=== PATIENT | male | born 1985 | race African-American/Black ===

== ENCOUNTER 2021-11-28 21:54 | Emergency (ER) | payer OTHER ==
[~2021-11-28] VITALS: Ht 172.7 cm; Wt 90.9 kg
[2021-11-28 21:57] VITALS: BP 135/86
== END 2021-11-28 23:40 | disposition left against medical advice (07) ==
LOC: EMS 21:58
DX: R06.02 Shortness of breath (principal); Z53.21 Procedure and treatment not carried out due to patient leaving prior to being seen by health care provider

== ENCOUNTER 2023-01-05 11:51 | Emergency (ER) | payer OTHER ==
[~2023-01-05] VITALS: Ht 172.7 cm; Wt 95.5 kg
[2023-01-05] MEDS ORDERED: IBUP-1554 PO (14:44)
[2023-01-05] MEDS ORDERED: CORTSUSP AD (14:44)
[2023-01-05] MEDS ORDERED: ACET-2080 PO (14:44)
[2023-01-05] MEDS ORDERED: CEPH-558 PO (14:44)
[2023-01-05 15:20] VITALS: BP 122/81
== END 2023-01-05 15:50 | disposition home or self-care (01) ==
LOC: EMS 11:56
DX: H60.11 Cellulitis of right external ear (principal); H60.91 Unspecified otitis externa, right ear; J45.909 Unspecified asthma, uncomplicated; F17.210 Nicotine dependence, cigarettes, uncomplicated; F12.90 Cannabis use, unspecified, uncomplicated; F15.90 Other stimulant use, unspecified, uncomplicated; Z98.890 Other specified postprocedural states
CPT/HCPCS: 99283